=== PATIENT | female | born 1980 | race American Indian/Alaskan Native ===

== ENCOUNTER 2021-10-26 12:03 | Emergency (ER) | payer OTHER ==
[2021-10-26] MEDS ORDERED: SODIUM CHLORIDE 0.9% 1000 ML 1,000 ML IV ONE (12:12)
[2021-10-26] MEDS ORDERED: METOCLOPRAMIDE 10 MG/2 ML INJ IV ONE (12:12)
[2021-10-26 12:29] LABS: Amorphous Crystals,Urine Few; Bilirubin,Urine SM (Negative); Blood,Urine NEG (Negative); Color,Urine Amber (Yellow); Mucus,Urine 3+ /HPF
[2021-10-26 12:30] LABS: HCG Qualitative,Urine Negative (Negative)
[2021-10-26 12:45] LABS: Ictotest,Urine Negative (Negative)
[2021-10-26] MEDS ORDERED: diphenhydrAMINE 50 MG/ML VIAL IV ONE (12:47)
[2021-10-26 13:06] LABS: Hematocrit 39.2 % (30.3-42.9); Hemoglobin 12.6 gm/dl (10.1-14.3); Mean Corpuscular HGB Conc 32 % (30-34); Mean Corpuscular Volume 83 fl (79-97); Platelet Count 282 K/mm3 (140-440); Red Blood Count 4.72 M/mm3 (3.65-5.03); Red Cell Distribution Width 17.7 % (13.2-15.2)
[2021-10-26] MEDS ORDERED: ONDANSETRON 4 MG/2 ML INJ IV ONE (13:12)
[2021-10-26 13:13] LABS: Basophils % (Auto) 0.3 % (0.0-1.8); Lymphocytes # (Auto) 0.5 K/mm3 (1.2-5.4); Lymphocytes % (Auto) 9.2 % (13.4-35.0); Monocytes # (Auto) 0.1 K/mm3 (0.0-0.8); Monocytes % (Auto) 2.3 % (0.0-7.3)
[2021-10-26 13:28] LABS: Alanine Aminotransferase 22 units/L (7-56); BUN/Creatinine Ratio 11; Blood Urea Nitrogen 9 mg/dL (7-17); Calcium 9.3 mg/dL (8.4-10.2); Hemolysis Index 13
[2021-10-26 13:29] LABS: Bilirubin,Direct < 0.2 mg/dL (0-0.2)
[2021-10-26] MEDS ORDERED: METOPROLOL TARTRATE 5 MG/5 ML INJ IV ONE (13:44)
[2021-10-26] MEDS ORDERED: HALOPERIDOL LACTATE 5 MG/1 ML INJ ONE (14:23)
--- NOTE | 2021-10-26 14:41 | Cat Scan Report ---
CT ABDOMEN AND PELVIS WITH CONTRAST INDICATION / CLINICAL INFORMATION: Unspecified abdominal pain. TECHNIQUE: Axial CT images were obtained through the abdomen and pelvis after 94 cc Omnipaque [address] scans at this location are performed using CT dose reduction for ALARA by means of automated e xposure control. COMPARISON: None available. FINDINGS: LOWER CHEST: No significant abnormality. LIVER: No significant abnormality. GALLBLADDER: Surgically absent. BILE DUCTS: No significant abnormality. PANCREAS: No significant abnormality. SPLEEN: No significant abnormality. ADRENALS: No significant abnormality. RIGHT KIDNEY/URETER: No significant abnormality. LEFT KIDNEY/URETER: No significant abnormality. STOMACH/SMALL BOWEL: There are expected gastric bypass changes without acute findings. COLON: No acute findings. The majority of the colon is collapsed. APPENDIX: No significant abnormality. PERITONEUM: No free fluid. No free air. No fluid collection. LYMPH NODES: No significant adenopathy. VASCULATURE: No significant abnormality. URINARY BLADDER: No significant abnormality. REPRODUCTIVE ORGANS: Prior hysterectomy. No significant adnexal abnormality. ADDITIONAL FINDINGS: None. BONES: No acute findings. There are mild degenerative changes of the lumbar spine. IMPRESSION: 1. No acute findings to explain the patient's abdominal pain. Signer Name: Anthony Ott MD Signed: 10/26/2021 2:36 PM Workstation Name: [id number]
--- NOTE | 2021-10-26 14:51 | Emergency Department Report ---
ED N/V/D HPI - General Chief complaint: Nausea/Vomiting/Diarrhea Stated complaint: ABD PAIN Time Seen by Provider: 10/26/21 12:12 Source: EMS Mode of arrival: Stretcher Limitations: No Limitations - History of Present Illness Initial comments: nausea and vomiting for few days , history fo gastroapresis , had gastirc bypass before , history of ulcers, from [facility] here for visit MD complaint: nausea, vomiting -: Gradual, days(s) Description of Vomiting: food contents Associated Abdominal Pain: No Location: diffuse Radiation: none Quality: cramping, aching Consistency: constant Improves with: eating Associated Symptoms: denies other symptoms. denies: myalgias, chest pain, cough - Related Data Previous Rx's Medication Instructions Recorded Last Taken Type Ondansetron [Zofran Odt] 4 mg PO Q8HR #14 tab.rapdis 10/26/21 Unknown Rx Allergies Allergy/AdvReac Type Severity Reaction Status Date / Time No Known Allergies Allergy Unverified 10/26/21 12:12 ED Review of Systems ROS: Stated complaint: ABD PAIN Other details as noted in HPI Constitutional: denies: chills, fever Eyes: denies: eye pain, eye discharge, vision change ENT: denies: ear pain, throat pain Respiratory: denies: cough, shortness of breath, wheezing Cardiovascular: denies: chest pain, palpitations Endocrine: no symptoms reported Gastrointestinal: denies: abdominal pain, nausea, diarrhea Genitourinary: denies: urgency, dysuria, discharge Musculoskeletal: denies: back pain, joint swelling, arthralgia Skin: denies: rash, lesions Neurological: denies: headache, weakness, paresthesias Psychiatric: denies: anxiety, depression Hematological/Lymphatic: denies: easy bleeding, easy bruising ED Past Medical Hx - Past Medical History Hx Hypertension: Yes Hx Seizures: Yes Additional medical history: graves - Surgical History Past Surgical History?: Yes Additional Surgical History: gastric bypass, total hysterectomy, ulcer removed - Medications Home Medications: Home Medications Medication Instructions Recorded Confirmed Last Taken Type Ondansetron [Zofran Odt] 4 mg PO Q8HR #14 tab.rapdis 10/26/21 Unknown Rx ED Physical Exam - General Limitations: No Limitations General appearance: alert, in no apparent distress - Head Head exam: Present: atraumatic, normocephalic - Eye Eye exam: Present: normal appearance - ENT ENT exam: Present: mucous membranes moist - Neck Neck exam: Present: normal inspection - Respiratory Respiratory exam: Present: normal lung sounds bilaterally. Absent: respiratory distress - Cardiovascular Cardiovascular Exam: Present: regular rate, normal rhythm. Absent: systolic murmur, diastolic murmur, rubs, gallop - GI/Abdominal GI/Abdominal exam: Present: soft, tenderness, normal bowel sounds. Absent: guarding, rebound - Extremities Exam Extremities exam: Present: normal inspection - Back Exam Back exam: Present: normal inspection - Neurological Exam Neurological exam: Present: alert, oriented X3 - Psychiatric Psychiatric exam: Present: normal affect, normal mood - Skin Skin exam: Present: warm, dry, intact, normal color. Absent: rash ED Course Vital Signs 10/26/21 10/26/21 12:11 13:35 Temperature 98.2 F Pulse Rate 92 H Respiratory 16 18 Rate Blood Pressure 152/96 [Left] O2 Sat by Pulse 96 96 Oximetry - Reevaluation(s) Reevaluation #1: 10/26/21 14:[address] SCAN DONE , unremarkable , benadryl, haldol and zofran given feels better , will follow up with her docotor in [facility] 10/26/21 14:52 ED Medical Decision Making - Lab Data Result diagrams: 10/26/21 12:44 10/26/21 12:44 Critical care attestation.: If time is entered above; I have spent that time in minutes in the direct care of this critically ill patient, excluding procedure time. ED Disposition Clinical Impression: Gastroparesis, Abdominal pain, Nausea & vomiting Disposition: 01 HOME / SELF CARE / HOMELESS Is pt being admited?: No Does the pt Need Aspirin: No Condition: Stable Instructions: Nausea and Vomiting, Adult, Gastroparesis Referrals: PHUONG FLANNERY [Other] - 3-5 Days
[2021-10-26] MEDS ORDERED: HALOPERIDOL LACTATE 5 MG/1 ML INJ IV ONE (15:50)
[2021-10-26 16:11] VITALS: BP 175/82
== END 2021-10-26 16:11 | disposition home or self-care (01) ==
LOC: ED 12:03
DX: R11.2 Nausea with vomiting, unspecified (principal); K31.84 Gastroparesis; R10.9 Unspecified abdominal pain; I10 Essential (primary) hypertension; R56.9 Unspecified convulsions; Z98.890 Other specified postprocedural states
CPT/HCPCS: 36415; 74177; 80053; 80076; 81001; 81025; 82150; 83690; 84484; 85025; 96361; 96374; 96375; 99284; J1200; J1630; J2405; J2765; J7030; J9280; Q9967; 80320; Q0162; G0480